=== PATIENT | female | born 1960 | race American Indian/Alaskan Native ===

== ENCOUNTER 2017-02-21 23:37 | Emergency (ER) | payer OTHER, BC ==
[2017-02-21 23:47] VITALS: BP 138/85
[2017-02-21] MEDS ORDERED: LIDOCAINE VISCOUS 2% ONE (23:53)
[2017-02-21] MEDS ORDERED: LIDOCAINE VISCOUS 2% PO ONE (23:58)
--- NOTE | 2017-02-22 01:49 | Emergency Department Report ---
- General Chief complaint: Skin/Abscess/Foreign Body Stated complaint: POSS BUG IN RT EAR Time Seen by Provider: 02/22/17 01:09 Source: patient Mode of arrival: Ambulatory Limitations: No Limitations - History of Present Illness Initial comments: Pt is a 56-year-old female presents to ED complaining of being outside earlier today when she felt a bug flying into her ear. Patient states she felt bug fly into her right ear and she fell but is in and she could've hit the bug moving around. She denies fever assess shows sinus nausea/vomiting/ She denies hearing loss or any other problems. complaint: foreign body -: This evening - Related Data Previous Rx's Medication Instructions Recorded Last Taken Type Carbamide Peroxide 6.5% [Ear Wax 1 - 2 drops OT BID #15 ml 02/22/17 Unknown Rx Drops] Allergies Allergy/AdvReac Type Severity Reaction Status Date / Time No Known Allergies Allergy Verified 02/21/17 23:42 Abscess Boil HPI - HPI Chief Complaint: Skin/Abscess/Foreign Body Stated Complaint: POSS BUG IN RT EAR Time Seen by Provider: 02/22/17 01:09 Home Medications: Previous Rx's Medication Instructions Recorded Last Taken Type Carbamide Peroxide 6.5% [Ear Wax 1 - 2 drops OT BID #15 ml 02/22/17 Unknown Rx Drops] Allergies/Adverse Reactions: Allergies Allergy/AdvReac Type Severity Reaction Status Date / Time No Known Allergies Allergy Verified 02/21/17 23:42 ED Review of Systems ROS: Stated complaint: POSS BUG IN RT EAR Other details as noted in HPI Constitutional: denies: chills, fever Eyes: denies: eye pain, eye discharge, vision change ENT: denies: ear pain, throat pain, dental pain, hearing loss, congestion Respiratory: denies: cough, shortness of breath, wheezing Cardiovascular: denies: chest pain, palpitations Endocrine: no symptoms reported Gastrointestinal: denies: abdominal pain, nausea, diarrhea Genitourinary: denies: urgency, dysuria, discharge Musculoskeletal: denies: back pain, joint swelling, arthralgia Skin: denies: rash, lesions Neurological: denies: headache, weakness, paresthesias Psychiatric: denies: anxiety, depression Hematological/Lymphatic: denies: easy bleeding, easy bruising ED Past Medical Hx - Past Medical History Previous Medical History?: No - Surgical History Past Surgical History?: Yes Additional Surgical History: HYSTERECTOMY - Social History Smoking Status: Never Smoker Substance Use Type: None - Medications Home Medications: Home Medications Medication Instructions Recorded Confirmed Last Taken Type Carbamide Peroxide 6.5% [Ear Wax 1 - 2 drops OT BID #15 ml 02/22/17 Unknown Rx Drops] ED Physical Exam - General Limitations: No Limitations General appearance: alert, in no apparent distress - Head Head exam: Present: atraumatic, normocephalic - Eye Eye exam: Present: normal appearance - ENT ENT exam: Present: mucous membranes moist, TM's normal bilaterally - Expanded ENT Exam Expanded Ear exam: Present: other (moderate cerumen in bilateral ear.) TM/Canal exam: Foreign Body: Right TM Mouth exam: Present: normal external inspection. Absent: drooling Teeth exam: Present: normal inspection Throat exam: Positive: normal inspection - Neck Neck exam: Present: normal inspection - Respiratory Respiratory exam: Present: normal lung sounds bilaterally. Absent: respiratory distress - Cardiovascular Cardiovascular Exam: Present: regular rate, normal rhythm. Absent: systolic murmur, diastolic murmur, rubs, gallop - GI/Abdominal GI/Abdominal exam: Present: soft, normal bowel sounds - Extremities Exam Extremities exam: Present: normal inspection - Back Exam Back exam: Present: normal inspection - Neurological Exam Neurological exam: Present: alert, oriented X3 - Psychiatric Psychiatric exam: Present: normal affect, normal mood - Skin Skin exam: Present: warm, dry, intact, normal color. Absent: rash ED Course Vital Signs 02/21/17 23:42 Temperature 98.2 F Pulse Rate 78 Respiratory 20 Rate Blood Pressure 138/85 O2 Sat by Pulse 100 Oximetry ED Medical Decision Making - Medical Decision Making 56 yo female presents for a foreign body in right ear ED course: 2-3 mL of lidocaine was injected into right ear. After about 20-30 minutes right ear was flushed with warm water. Above 40 mL normal saline was used to flush. Green small flying winged insect was flushed out of the ears along with wax Vital signs are normal patient is in no acute distress Discussed patient follow up with primary care physician in several days. She tolerated procedure well Critical care attestation.: If time is entered above; I have spent that time in minutes in the direct care of this critically ill patient, excluding procedure time. ED Disposition Clinical Impression: FB ear Qualifiers: Encounter type: initial encounter Laterality: right Qualified Code(s): T16.1XXA - Foreign body in right ear, initial encounter Disposition: DISCHARGED TO HOME OR SELFCARE Is pt being admited?: No Does the pt Need Aspirin: No Condition: Stable Instructions: Ear Foreign Body (ED) Prescriptions: Carbamide Peroxide 6.5% [Ear Wax Drops] 1 - 2 drops OT BID #15 ml Referrals: PRIMARY CARE, [Primary Care Provider] - 3-5 Days [facility] [Outside] - 3-5 Days [facility] [Outside] - 3-5 Days [facility] [Outside] - 3-5 Days Forms: Accompanied Note, Work/School Release Form(ED) Time of Disposition: 01:51
== END 2017-02-22 01:55 | disposition home or self-care (01) ==
LOC: ED 23:37
DX: T16.1XXA Foreign body in right ear, initial encounter (principal); X58.XXXA Exposure to other specified factors, initial encounter; Y93.89 Activity, other specified; Y99.9 Unspecified external cause status; Y92.89 Other specified places as the place of occurrence of the external cause
CPT/HCPCS: 99283